=== PATIENT | male | born 1975 | race Caucasian/White ===

== ENCOUNTER 2022-07-26 16:45 | Emergency (ER) | payer BC ==
[~2022-07-26] VITALS: Ht 177.8 cm; Wt 99.8 kg
[~2022-07-26 16:45] MED LIST: CEPH500 PO; CRUTCH3 USE; HYDACE10B PO; HYDACE5 PO
== END 2022-07-26 18:42 | disposition home or self-care (01) ==
LOC: ER 16:45
DX: S69.92XA Unspecified injury of left wrist, hand and finger(s), initial encounter (principal); X50.9XXA Other and unspecified overexertion or strenuous movements or postures, initial encounter
CPT/HCPCS: 73140; 99283-25